=== PATIENT | female | born 1965 | race Caucasian/White ===

== ENCOUNTER 2019-02-19 12:53 | Emergency (ER) | payer MEDICAID, OTHER ==
[~2019-02-19] VITALS: Wt 65.0 kg
[2019-02-19 12:56] VITALS: BP 220/110; PULSE 86; RESP 18; Wt 65.0 kg
[2019-02-19] MEDS ORDERED: ACETAMINOPHEN 325 MG TAB PO ONE (13:30)
[2019-02-19] MEDS ORDERED: ACET1TAB40 PO (15:04)
[2019-02-19] MEDS ORDERED: IBUP-1542 PO (15:05)
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
[2019-02-19] MEDS ORDERED: BENA1TAB57 PO (15:28)
[2019-02-19] MEDS ORDERED: HYDROCHLOROTHIAZIDE 25 MG TAB PO ONE (15:30)
[2019-02-19] MEDS ORDERED: BENAZEPRIL 20 MG TAB PO ONE (15:30)
== END 2019-02-19 15:45 | disposition home or self-care (01) ==
LOC: FTE 12:53
DX: S82.202A Unspecified fracture of shaft of left tibia, initial encounter for closed fracture (principal); I10 Essential (primary) hypertension; V00.831A Fall from motorized mobility scooter, initial encounter
CPT/HCPCS: 29505; 73562; 73700; Z7502; Z7610

== ENCOUNTER 2019-07-16 20:20 | Emergency (ER) | payer MEDICAID ==
[~2019-07-16] VITALS: Ht 154.9 cm; Wt 65.9 kg
[~2019-07-16 20:20] MED LIST: ACET1TAB40 PO; AMLO5TAB4 PO; BENA1TAB57 PO; HYDR-4011 PO; IBUP-1542 PO
[2019-07-16 20:56] VITALS: Ht 154.9 cm; Wt 65.9 kg
[2019-07-16] MEDS ORDERED: morphine 2 MG INJ IV STA (23:03)
[2019-07-16] MEDS ORDERED: ONDANSETRON 4 MG INJ IV STA (23:03)
[2019-07-16] MEDS ORDERED: hydrALAzine 20 MG INJ IV ONE (23:30)
[2019-07-16] MEDS ORDERED: POTASSIUM CHLORIDE (SR) 20 MEQ TAB PO STA (23:48)
[2019-07-17] MEDS ORDERED: hydrALAzine 20 MG INJ IV ONE
[2019-07-17 01:04] VITALS: BP 128/81; PULSE 83; RESP 16
== END 2019-07-17 01:24 | disposition home or self-care (01) ==
LOC: E/R 20:20
DX: S82.041A Displaced comminuted fracture of right patella, initial encounter for closed fracture (principal); R40.2142 Coma scale, eyes open, spontaneous, at arrival to emergency department; R40.2362 Coma scale, best motor response, obeys commands, at arrival to emergency department; R40.2252 Coma scale, best verbal response, oriented, at arrival to emergency department; I10 Essential (primary) hypertension; E87.6 Hypokalemia; W01.0XXA Fall on same level from slipping, tripping and stumbling without subsequent striking against object, initial encounter; Y92.89 Other specified places as the place of occurrence of the external cause
CPT/HCPCS: 29505; 73562; 80048; 85025; 96374; 96375; J0360; J2270; J2405; Z7502; Z7610